=== PATIENT | female | born 1965 | race Caucasian/White ===

== ENCOUNTER → 2016-09-01 | Outpatient (CLI) | payer OTHER ==
--- NOTE | 2016-09-01 14:26 | RADRPT ---
PROCEDURE: XR right knee. CLINICAL INDICATION: Knee pain TECHNIQUE: AP weightbearing, PA weightbearing, lateral weightbearing and sunrise views are availab le for review. COMPARISON: None available FINDINGS: There is moderate osteoarthrosis involving the medial tibial femoral compartment and mild osteoarthr osis involving the patellofemoral compartment. This is associated with joint space narrowing, subcho ndral sclerosis and osteophytosis. There is otherwise normal mineralization, architecture and alignment. No fractures are identified. No osseous lesions are identified. The soft tissues are unremarkable. IMPRESSION: Moderate osteoarthrosis involving the medial tibial femoral compartment and mild osteoarthrosis invo lving the patellofemoral compartment. RPTAT: [facility] .Daquan Hernandez MD, MD Date Time Electronically viewed and signed by .Daquan Hernandez MD, on 09/01/2016 14:25 .B/
== END | disposition home or self-care (01) ==
LOC: HKI 13:53
PROVIDERS: ATTEND Orthopaedic Surgery
DX: M25.561 Pain in right knee (principal); M17.11 Unilateral primary osteoarthritis, right knee
CPT/HCPCS: 73564; G0463

== ENCOUNTER → 2016-10-18 | Outpatient (CLI) | payer OTHER | END | disposition home or self-care (01) | LOC: HKI 09:39 | PROVIDERS: ATTEND Orthopaedic Surgery | DX: M17.11 Unilateral primary osteoarthritis, right knee (principal); F41.9 Anxiety disorder, unspecified; E03.9 Hypothyroidism, unspecified ==